=== PATIENT | female | born 1990 | race Caucasian/White ===

== ENCOUNTER 2018-07-08 15:13 | Outpatient (REF) | payer SELFPAY ==
[2018-07-09 10:10] LABS: HBs Antibody, Quant 314.7 mIU/mL; Hepatitis B Surface Ab Positive
[2018-07-10 10:59] LABS: TB Interpretation Negative (NEGAT)
== END 2018-07-08 15:33 ==
LOC: LBO 15:13
PROVIDERS: PCP Internal Medicine; Visit Provider Nurse Practitioner Family
DX: Z01.84 Encounter for antibody response examination (principal); Z02.1 Encounter for pre-employment examination
CPT/HCPCS: 36415; 86706; 86480

== ENCOUNTER 2024-06-27 02:48 | Outpatient (CLI) | payer OTHER, SELFPAY ==
--- OUTSIDE RECORDS SUMMARY | 2024-06-27 02:50 | XMS_ITS | Encounter Summary ---
Author Organization [facility] Address [address] [place] [address] Care Team Providers Care Design Release Engineer Name Role Phone Mayco Jesus MD Primary Care Provider Aliyah negro Encounter Details Date Type Department Care Team (Late st Contact Info) Description 08/31/2021 Lab Requisition [facility] Pathology & Laboratory Medicine - [address] [address] Outr Resulting Lab, Provider Social History Tobacco Use Types Packs/Day Years Used Date Smoking Tobacco: Never Assessed Sex and Gender Information Value Date Recorded Sex Assigned at Not on file Gender Identity Not on file Sexual Orientation Not on file documented as of this encounter Plan of Treatment Not on file documented as of this encounter Procedures Procedure Name Priority Date/Time Associated Diagnosis Comments ZZCOVID-19 TEST [facility] PCR Today 08/31/2021 8:57 EST COVID-19 TESTING Routine 08/31/2021 8:57 EST documented in this encounter Results * COVID-19 TEST [facility] PCR (08/31/2021 8:57 EST) Swab 08/31/2021 8:57 EST 08/31/2021 16:19 EST Provider Outr Resulting Lab MICROBIOLOGY - GENERAL ORDERABLES [facility] [address] [place] [address] * COVID-19 TESTING (08/31/2021 8:57 EST) COVID-19 rt-PCR Result Negative Negative 08/31/2021 19:14 EST [facility] Comment: This test has not been FDA cleared or approved. This test has been authorized by FDA under an EUA for use by authorized laboratories. This test has been authorized only for detection of nucleic acid from 2019-nCoV, not for any other viruses or pathogens. This test is only authorized for the duration of the declaration that circumstances exist justifying the authorization of emergency use of in vitro diagnostic tests for detection and/or diagnosis of 2019-nCoV under section 564(b)(1) of Act, 21 U.S.C ?? 360bbb-3(b) (1), unless the authorization is terminated or revoked sooner. Negative results do not preclude 2019-nCoV infection and should not be used as the sole basis for treatment or other patient management decisions. Negative results must be combined with clinical observations, patient history, and epidemiological information. Performed on the Brand[employer] Fusion instrument Performing Lab [place] [facility] Lab 08/31/2021 19:14 EST [facility] Swab 08/31/2021 8:57 EST 08/31/2021 16:19 EST Provider Outr Resulting Lab MICROBIOLOGY - GENERAL ORDERABLES [facility] [address] [place] [address] documented in this encounter Visit Diagnoses Not on filedocumented in this encounter Care Teams Design Release Engineer Relationship Specialty Start Date End Date Mayco Jesus MD PCP - General 01/17/10 documented as of this encounter
--- OUTSIDE RECORDS SUMMARY | 2024-06-27 02:50 | XMS_ITS | Encounter Summary ---
Author Organization [facility] Address [address] [place] [address] Care Team Providers Care Heavy Media Operator Name Role Phone Mayco Jesus MD Primary Care Provider Aliyah negro Encounter Details Date Type Department Care Team (Late st Contact Info) Description 02/11/2018 Results Only [facility] [phone] Caryn Meyre, [facility] [address] [place] [address] Social History Tobacco Use Types Packs/Day Years Used Date Smoking Tobacco: Never Assessed Sex and Gender Information Value Date Recorded Sex Assigned at Not on file Gender Identity Not on file Sexual Orientation Not on file documented as of this encounter Plan of Treatment Not on file documented as of this encounter Procedures Procedure Name Priority Date/Time Associated Diagnosis Comments PAP TEST- RESULT ONLY Routine 02/11/2018 0:00 EDT documented in this encounter Results * PAP TEST- RESULT ONLY (02/11/2018 0:00 EDT) Pathology Report: CYTOPATHOLOGY REPORT Reports generated via electronic interface contain original data; however they are lacking the format of the original report. Caution should be taken when reading/interpreti ng unformatted reports. Name: ? FANI RIOS ? Accession #: ? [id number] ? : ? 1990 (Age: 28) ??F ?Collect Date: ? 02/11/2018 ? Location: ? [facility] ? Receive Date: ? 02/11/2018 ? Provider: CARYN MEYER BUTTER PRODUCTION SUPERVISOR Copy to: ISH ROSA MD ? Final Report SPECIMEN ADEQUACY ? Satisfactory for Evaluation - transformation zone component present GENERAL CATEGORIZATION ? Negative for Intraepithelial Lesion or Malignancy ?? Last Menstrual Period: 01/30/18 Specimen/Source: ??Pap Test, Cervix, ThinPrep Imaging System with manual evaluation Document reviewed and electronically signed by: ? Pattie Zamora, CT(ASCP) ? Report ??Date: 02/19/2018 13:02 HPV with Pap Test ? Date Ordered: ? 02/19/2018 ? Status: ?? Signed Out ?Date Complete: ? 02/20/2018 ? By: ??System Interface ? Date Reported: ? 02/20/2018 ? Interpretation RESULT: Negative for HPV. No E6 or E7 mRNA is detected from HPV types 16,18,31,33,35, 39,45,51,52,56,58, 59,66, and 68 by executive creative director mediated amplification. Comments Document reviewed and electronically signed by: ? System Interface ? Report date: 02/20/2018 By the signature above, the attending physician certifies that he/she has personally conducted a gross and/or microscopic examination of the described specimens and rendered or confirmed the above diagnosis. End of Report [facility] 02/11/2018 02/11/2018 Caryn Meyer BUTTER PRODUCTION SUPERVISOR PATHOLOGY ORDERABLES [facility] [address] [place] [address] documented in this encounter Visit Diagnoses Not on filedocumented in this encounter Care Teams Heavy Media Operator Relationship Specialty Start Date End Date Mayco Jesus MD PCP - General 01/17/10 documented as of this encounter
--- OUTSIDE RECORDS SUMMARY | 2024-06-27 02:50 | XMS_ITS | Encounter Summary ---
Author Organization [facility] Address [address] [place] [address] Care Team Providers Care Flight Attendant Ramp Name Role Phone Unavailable Primary Care Provider Unavailabl e Encounter Details Date Type Department Care Team (Late st Contact Info) Description 01/12/2010 Results Only [facility] Laboratory Services - [facility] ([facility]) [address] [place] [address] [id number] Kamran Gutierrez MD [address] [place] [address] Social History Tobacco Use Types Packs/Day Years Used Date Smoking Tobacco: Never Assessed Sex and Gender Information Value Date Recorded Sex Assigned at Not on file Gender Identity Not on file Sexual Orientation Not on file documented as of this encounter Plan of Treatment Not on file documented as of this encounter Procedures Procedure Name Priority Date/Time Associated Diagnosis Comments SURGICAL PATHOLOGY Routine 01/12/2010 0:00 EDT documented in this encounter Results * SURGICAL PATHOLOGY (01/12/2010 0:00 EDT) Pathology Report: SURGICAL PATHOLOGY REPORT ? Reports generated via electronic interface contain original data; ? however they are lacking the format of the original report. ? Caution should be taken when reading/interpretin g unformatted reports. ? Name: ? FANI RIOS ? Accession #: ? [id number] ? : ? 1990 (Age: 20) ??F ? Collect Date: ? 01/12/2010 ? Location: ? [facility] ? Receive Date: ? 01/13/2010 ? Provider: KAMRAN GUTIERREZ MD ? Copy to: ISH ROSA MD ? AMANDA M KARO MD ? Final Pathologic Diagnosis: ? Appendix, appendectomy: ? - Acute suppurative appendicitis and periappendicitis with evidence of ? perforation. ? Document reviewed and electronically signed by: ? Anastasiya Song MD ? Report ??Date: 01/17/2010 16:32 ? By the signature above, the attending physician certifies that he/she has ? personally conducted a gross and/or microscopic examination of the described ? specimens and rendered or confirmed the above diagnosis. ? Specimen(s) Received: ? Appendix ? Clinical History: ? Appendicitis ? Gross Description: ? Received in formalin labelled Fani Rios and appendix is a ? vermiform appendix received in two pieces, with the distal end measuring 4.0 cm in length by 1.0 cm in diameter and the proximal portion measuring 4.5 cm in ? length by 0.7 cm in diameter. ??The resection margin is received stapled closed ?? and is black inked. ??Located 0.5 cm from the distal end of the appendix is a 0.7 x 0.5 cm large, full wall thickness defect, with the edges of the wall in this ?? region having a friable, lucero-white cut surface. ??The serosa is diffusely dusky, ramirez and ramirez-brown, and rough, with a small amount of attached mesoappendix. ??The lumen is 0.6 cm in diameter at the distal end in the region of the perforation; however, the remaining lumen is of normal caliber and there are no fecaliths. ?? The appendiceal wall is ramirez to ramirez-brown and firm and ranges in thickness from ?? 0.1 cm distally in the region of the perforation to 0.3 cm. ??A section adjacent to the black inked stapled surgical margin, one-half of the longitudinally ? bisected distal tip of the appendix, and a cross section through the distal ? perforation (blue ink placed on serosa in this region) as well as cross sections of the middle and proximal appendix are all submitted in one cassette. ??(Luis Alberto. ? Melania)/gertrude ? End of Report ? [facility] 01/12/2010 01/13/2010 16: 38 EDT Kamran Gutierrez MD PATHOLOGY ORDERABLE [facility] [address] [place] [address] documented in this encounter Visit Diagnoses Not on filedocumented in this encounter
--- OUTSIDE RECORDS SUMMARY | 2024-06-27 02:50 | XMS_ITS | Clinical Summary ---
Author Organization [facility] Address [address] [place] [address] Care Team Providers Care Residential Team Leader Name Role Phone Mayco Jesus MD Primary Care Provider Aliyah negro Social History Tobacco Use Types Packs/Day Years Used Date Smoking Tobacco: Never Assessed Sex and Gender Information Value Date Recorded Sex Assigned at Not on file Gender Identity Not on file Sexual Orientation Not on file Plan of Treatment Health Maintenance Due Date Last Done Comments Hepatitis C Screen 1990 Hepatitis B Vaccine (1 of 3 - 19+ 3-dose series) 01/02 COVID-19 Vaccine (2022-24 season) 2023 Care Teams Residential Team Leader Relationship Specialty Start Date End Date Mayco Jesus MD PCP - General 01/17/10
--- OUTSIDE RECORDS SUMMARY | 2024-06-27 02:50 | XMS_ITS | Referral Summary ---
Author Organization [facility] Address [address] [place] [address] Care Team Providers Care Edge Stitcher Name Role Phone Mayco Jesus MD Primary Care Provider Aliyah negro Social History Tobacco Use Types Packs/Day Years Used Date Smoking Tobacco: Never Assessed Sex and Gender Information Value Date Recorded Sex Assigned at Not on file Gender Identity Not on file Sexual Orientation Not on file Plan of Treatment Not on file Care Teams Edge Stitcher Relationship Specialty Start Date End Date Mayco Jesus MD PCP - General 01/17/10
--- OUTSIDE RECORDS SUMMARY | 2024-06-27 02:50 | XMS_ITS | Encounter Summary ---
Author Organization [facility] Address [address] [place] [address] Care Team Providers Care Observer Gravity Prospecting Name Role Phone Mayco Jesus MD Primary Care Provider Aliyah negro Encounter Details Date Type Department Care Team (Late st Contact Info) Description 09/01/2013 Results Only [facility] Laboratory Services - [facility] ([facility]) [address] [place] [id number] Thu Ford, SPINNING MACHINE TENDER Social History Tobacco Use Types Packs/Day Years [...] Diagnosis Comments PAP TEST- RESULT ONLY Routine 09/01/2013 0:00 EST documented in this encounter Results * PAP TEST- RESULT ONLY (09/01/2013 0:00 EST) Pathology Report: CYTOPATHOLOGY REPORT Reports generated via electronic interface contain original data; however they are lacking the format of the original report. Caution should be taken when reading/interpreti ng unformatted reports. Name: ? FANI RIOS ? Accession #: ? [id number] : ? 1990 (Age: 23) ??F ?Collect Date: ? 09/01/2013 Location: ? [facility] ? Receive Date: ? 09/03/2013 Provider: ?THU FORD SPINNING MACHINE TENDER Copy to: ?ISH ROSA MD ? Specimen/Source: ?Pap Test, Cervix/Endocervix, ThinPrep Imaging System with manual evaluation Last Menstrual Period: ? 08/12/2013 Other: ? Additional clinical information: Last pap 03/14/2010 WNL ? SPECIMEN ADEQUACY ? Satisfactory for Evaluation - transformation zone component present GENERAL CATEGORIZATION ? Negative for Intraepithelial Lesion or Malignancy ? Document reviewed and electronically signed by: ? LANEY Fuller(ASCP) ? Report Date: ??09/04/2013 13:16 End of Report [facility] 09/01/2013 09/03/2013 Thu Ford NP PATHOLOGY ORDERABLES [facility] [address] [place] [address] documented in this encounter Visit Diagnoses Not on filedocumented in this encounter Care Teams Observer Gravity Prospecting Relationship Specialty Start Date End Date Mayco Jesus MD PCP - General 01/17/10 documented as of this encounter
--- OUTSIDE RECORDS SUMMARY | 2024-06-27 02:50 | XMS_ITS | Encounter Summary ---
Author Organization [facility] Address [address] [place] [address] Care Team Providers Care Individual Pension Adviser Name Role Phone Mayco Jesus MD Primary Care Provider Aliyah negro Encounter Details Date Type Department Care Team (Late st Contact Info) Description 03/14/2010 Results Only [facility] Laboratory Services - [facility] ([facility]) [address] [place] [address] Thu Ford, WHEELCHAIR DRIVER Social History Tobacco Use Types Packs/Day Years Used Date Smoking Tobacco: Never Assessed Sex and Gender Information Value Date Recorded Sex Assigned at Not on file Gender Identity Not on file Sexual Orientation Not on file documented as of this encounter Plan of Treatment Not on file documented as of this encounter Procedures Procedure Name Priority Date/Time Associated Diagnosis Comments CYTOPATHOLOGY Routine 03/14/2010 0:00 EDT documented in this encounter Results * CYTOPATHOLOGY (03/14/2010 0:00 EDT) Pathology Report: CYTOPATHOLOGY REPORT ? Reports generated via electronic interface contain original data; ? however they are lacking the format of the original report. ? Caution should be taken when reading/interpreti ng unformatted reports. ? Name: ? FANI RIOS ? Accession #: ? [id number] ? : ? 1990 (Age: 20) ??F ?Collect Date: ? 03/14/2010 ? Location: ? [facility] ? Receive Date: ? 03/15/2010 ? Provider: ?THU M AMY WHEELCHAIR DRIVER ? Copy to: ? Specimen/Source: ?Pap Test, Cervix/Endocervix, ThinPrep Imaging System ? with manual evaluation ? Last Menstrual Period: ? 6/4/10 ? Other: ? Additional clinical information: 1st pap smear, blind pap ? SPECIMEN ADEQUACY ? Satisfactory for Evaluation ? - transformation zone component present ? GENERAL CATEGORIZATION ? Negative for Intraepithelial Lesion or Malignancy ? Document reviewed and electronically signed by: ? Rand Hawk, CT(ASCP) ? Report Date: ??03/17/2010 16:21 ? End of Report ? [facility] 03/14/2010 03/15/2010 Thu Ford WHEELCHAIR DRIVER PATHOLOGY ORDERABLES Performing Organization Address City/State/[facility] Co de Phone Number [facility] [address] [place] [address] documented in this encounter Visit Diagnoses Not on filedocumented in this encounter Care Teams Individual Pension Adviser Relationship Specialty Start Date End Date Mayco Jesus MD PCP - General 01/17/10 documented as of this encounter
[2024-06-27 08:20] LABS: Abs Immature Grans 0.02 10^3/uL (0.0-0.06); Absolute Basophil Count 0.07 10^3/uL (0.0-0.2); Absolute Lymphocyte Count 1.55 10^3/uL (1.2-3.4); Absolute Monocyte Count 0.47 10^3/uL (0.1-0.8); Absolute Neutrophil Count 3.95 10^3/uL (1.2-6.7); Basophils % 1.1 %; Eosinophils % 3.2 %; HCT 41.9 % (36.0-46.0); HGB 14.1 g/dL (11.2-15.7); Immature Grans % 0.3 %; Lymphocytes % 24.8 %; MCH 29.7 pg (27.0-33.0); MCHC 33.7 % (32.0-36.0); MCV 88 fL (80-95); MPV 10.4 fL (8.0-11.0); Monocytes % 7.5 %; Neutrophils % 63.1 %; Platelet Count 226 10^3/uL (130-400); RBC 4.75 10^6/uL (3.93-5.22); RDW 11.5 % (11.7-14.6); WBC 6.26 10^3/uL (4.4-10.8)
[2024-06-27 08:54] LABS: ALT 21 U/L (14-59); AST 21 U/L (15-37); Albumin 4.2 g/dL (3.4-5.0); Alkaline Phosphatase 70 U/L (46-116); Anion Gap 4.5 mmol/L (3-11); BUN 9 mg/dL (7-18); Bilirubin, Total 1.17 mg/dL (0.2-1.0); CO2 30.5 mmol/L (21.0-32.0); CREATININE 0.9 mg/dL (0.55-1.02); Calcium 9.2 mg/dL (8.5-10.1); Chloride 102 mmol/L (98-107); Cholesterol 141 mg/dL (<200); Estimated GFR 84.97 (mL/min/1.73m2); Glucose 84 mg/dL (74-106); HDL Cholesterol 78 mg/dL (40-60); Potassium 3.9 mmol/L (3.5-5.1); Sodium 137 mmol/L (136-145); Total Protein 7.4 g/dL (6.4-8.2)
[2024-06-27 08:55] LABS: Triglyceride <25 mg/dL (<150)
[2024-06-27 10:28] LABS: LDL CHOLESTEROL 54 mg/dL (<100)
== END 2024-06-27 02:49 | disposition home or self-care (01) ==
LOC: LBO 02:49
PROVIDERS: Absent Provider Nurse Practitioner; PCP Nurse Practitioner; Referring Provider Nurse Practitioner; Visit Provider Nurse Practitioner
DX: Z13.220 Encounter for screening for lipoid disorders (principal); R11.0 Nausea; R10.2 Pelvic and perineal pain
CPT/HCPCS: 36415; 80053; 80061; 83721; 85025

== ENCOUNTER 2025-02-23 10:05 | Outpatient (REF) | payer OTHER, SELFPAY ==
--- NOTE | 2025-02-23 09:55 | PAPFT_PTH ---
PATIENT: Josephine Rios LOC: [facility]#:[id number] AGE/SX: 35/F ROOM: RE02/23/[address]: Zonia Rojas NP : 1990 BED: DIS: 02/23/2025 SPEC #: [id number] RECD: 02/23/25 13:13 STATUS: JYOTSNA REQ #: [id number] MUNIRA: 02/23/25 09:[address]: Zonia Rojas NP DEPT: [facility] Cytology RECD BY: Sapna Wagoner ENTERED: 02/23/25 13:14 SP TYPE: PAPFT OTHR DR: Sandra Park APRN Tissues: 1 - CX/ENDOCX FOR PAP SMEARS Procedures: PAP THIN PREP/[facility] Screening HPV DNA PROBE Comments: [id number] (HPV 16 & 18/45)
== END 2025-02-23 10:06 | disposition home or self-care (01) ==
LOC: LBN 10:05
PROVIDERS: PCP Nurse Practitioner; Visit Provider Nurse Practitioner Women's Health
DX: Z12.4 Encounter for screening for malignant neoplasm of cervix (principal); Z11.51 Encounter for screening for human papillomavirus (HPV)
CPT/HCPCS: 88142; 87624

== ENCOUNTER 2025-07-14 00:15 | Outpatient (CLI) | payer OTHER, SELFPAY ==
--- NOTE | 2025-07-14 07:15 | DI.CT_ITS ---
Exam(s) CT ABDOMEN PELVIS W EXAM: CT ABDOMEN PELVIS W CLINICAL HISTORY: chronic RLQ pain,R10.31 TECHNIQUE: Imaging Protocol: Axial computed tomography images with coronal and sagittal reformatted images were created and reviewed. CONTRAST MATERIAL: Intravenous: Omnipaque 350 Contrast volume:75 mL Oral: Yes COMPARISON: CT ABD PELVIS WITH CONTRAST from 01/12/2010 FINDINGS: ABDOMEN: Lung Bases: No acute abnormality. Liver: Normal density. No measurable mass. Portal, Superior Mesenteric, and Splenic Veins: Unremarkable. Gallbladder and Biliary Tract: No radiodense calculus or dilation. Pancreas: Normal density, no abnormal calcifications or inflammatory process. Spleen: Normal. Adrenals: No masses seen. Kidneys: Normal size, contour and axis. No radiodense stones or obstructive uropathy. No masses seen. Abdominal Aorta: Abdominal portion non-dilated. Bowel: There is no evidence of bowel obstruction. There is mild thickening of the wall of the transverse colon, portions of the descending colon and sigmoid colon. This may in part be due to underdistention but infectious or inflammatory process should be considered. There are question of mild infla mmatory changes seen in the soft tissues around in the transverse colon. There is no evidence of appendicitis. Peritoneal Cavity: No ascites, collection or mesenteric inflammatory response. No free air. Lymph Nodes: Within normal limits. Bones: Within normal limits for the patient's age. Soft Tissues: Unremarkable. PELVIS: Bladder: Symmetric distention, no gross wall thickening. Reproductive Organs: There is a 2 cm corpus luteal cyst on the right ovary. Lymph Nodes: Within normal limits. Bones: Within normal limits for the patient's age. IMPRESSION: 1. Mild wall thickening seen in the transverse colon, portions of the descending colon and sigmoid colon. This may be in part due to underdistention but a infectious/inflammatory process such as Crohn's/UC should be considered. Please correlate clinically. 2. 2 cm right ovarian corpus luteal cyst. RADIATION DOSE DELIVERED: 483.25mGy.cm Total DLP DATA REPOSITORY: All CT scans at this facility are submitted to the National Radiology Data Registry (NRDR) Dose Index Registry (DIR) with the [employer] (ACR). RADIATION OPTIMIZATION: All CT scans at this facility use at least one of these dose optimization techniques: automated exposure control; mA and/or kV adjustment per patient size (includes targeted exams where dose is matched to clinical indication); or iterative reconstruction.
[2025-07-14] MEDS: Barium Sulfate 2% W/V-Berry Smoothie 450 ML BTL PO (07:43)
[2025-07-14] MEDS: Barium Sulfate 2% W/V-Creamy Vanilla Smoothie 450 ML BTL PO (07:43)
[2025-07-14] MEDS: Normal Saline - Diluent 50 ML VIAL IJ (09:50)
[2025-07-14] MEDS: Normal Saline Flush 10 ML SYR IVP (09:51)
[2025-07-14] MEDS: Omnipaque 350 MG/ML 500 ML BTL-Imaging package IJ (09:51)
== END 2025-07-14 00:35 ==
PROVIDERS: PCP Nurse Practitioner; Visit Provider Family Medicine
DX: R10.31 Right lower quadrant pain (principal); G89.29 Other chronic pain
CPT/HCPCS: 74177

== ENCOUNTER 2025-08-14 06:07 | Day surgery (SDC) | payer OTHER, SELFPAY ==
--- NOTE | 2025-08-13 14:16 | PDOC.DSDIS_ITS ---
Date of service: 08/14/25 Discharge Plan Disposition Patient Disposition: Home Condition: Good Discharge Details Reason For Visit: Diagnostic colonoscopy Attending Provider: Mack Frank Primary Care Provider: Ibrahima Marmolejo Home Meds and New Rx's Prescriptions: Continued acetaminophen 325 mg tablet 325 mg PO ONCE PRN ondansetron HCl 4 mg tablet 4 mg PO Q8H PRN (Reason: nausea and vomiting) Qty: 7 0RF rizatriptan 5 mg tablet,disintegrating See Rx Instructions PO .COMPLEX Qty: 10 6RF Rx Instructions: take 1 tablet at onset of headache; if no relief, may repeat 1 tablet after at least 2 hrs PO Discontinued polyethylene glycol 3350 [Miralax] 17 gram/dose powder 17 g PO DAILY PRN Discharge Instructions Additional Instructions: Josephine, I hope you have a quick and uneventful recovery as you transition home after the procedure. Things went very smoothly. Your prep was excellent, and I could see everything fine. I did see some signs of inflammation in your rectum, as well as a few patchy spots in your colon. There is also a little bit of thickened tissue in the last part of your small intestine, known as the terminal ileum. Putting all of this together, I suspect this may represent mild Crohn's colitis. I did several biopsies of this today, and I will send this off to the pathologist to see if that helps support the diagnosis. The results will take a week or 2 to get back, but once I have that information, I will call you and let you know if we need to do anything different. I also found a small bit of polypoid tissue, that I did removed today. This is certainly nothing to worry about, nor would it explain any of the symptoms that you experienced. If it does test and turn up technician to be an adenomatous polyp, then that might influence the timing of future colonoscopies. For now, there is nothing else that you need to do. Certainly if you have any questions at all, do not hesitate to grab me. Alternatively, I will call you as soon as I have the results. 1. If tolerated, consume a soft, low fiber diet for 1-2 days. 2[address] Do not drive, drink alcohol, operate machinery, make critical decisions, or do activities that require coordination or balance for 24 hours. 3. Because air was put into your colon during the procedure, expelling air from your rectum (passing gas or farting) is normal. 4. You may not have a bowel movement for 1-3 days because of the colonoscopy prep. This is normal. 5. Go directly to the emergency room if you notice any of the following: Develop chills (warm to touch), or if you have a thermometer and your temperature is above 101 Difficulty breathing or difficultly swallowing Persistent vomiting Severe abdominal pain, other than gas cramps Severe chest pain Black, tarry stools Any bleeding ? exceeding one tablespoon 6. Call your physician if the site where your intravenous was started becomes red, swollen, painful, and warm to touch. 7. Your physician has reviewed your pre-procedure medications. Please continue t o take those medications as previously ordered. You will be given specific information/education regarding any changes to your medications before leaving. Stand Alone Forms: Portal Information Activity:: Activity as Tolerated Diet:: As Tolerated Discharge Orders Discharge Orders: Discharge Order (Routine); Ordered 08/13/25 Ordered By: Mack Frank DS: Diagnosis Discharge Diagnosis (1) Colitis: Status: Acute Asessment and Plan: Follow-up on the polypectomy and biopsy results
--- NOTE | 2025-08-13 14:43 | COLE_ITS ---
Date of service: 08/14/25 Time of Service: 08:02 Colonoscopy Report Date of procedure: 08/14/25 Pre-op diagnosis general: Colitis Post-op diagnosis procedure note: other (Possible Crohn's colitis) Procedure: Colonoscopy with biopsies and polypectomy Surgeon: Mack Frank Anesthesia Type: General:No Airway Estimated blood loss (mL): 5 Pathology: other (Rectal biopsies, biopsies of terminal ileum, 0.25 cm flat polyp at 70 cm) Complications: None Disposition: same day Indications: Josephine is a 35-year-old woman with colitis of uncertain etiology Prep: Miralax/Dulcolax Procedure Start Time: 07:32 Procedure End Time: 07:53 Retraction Time: 9 Findings: Mild proctitis, mild cobblestoning of the terminal ileum, 0.5 cm flat polyp at 70 cm Procedure Description: After the induction of anesthesia, and with the patient in left lateral decubitus position, I began by performing an external anorectal exam.? Perineum and skin were normal, as was the anal verge.? There was no evidence of external hemorrhoids.? Next, I performed a digital rectal exam.? I did not appreciate any abnormal findings.? Next, I advanced a colonoscope into the rectal vault.? I performed retroflexion.? This appeared normal. There was some mild inflammation and some ulcerative changes of the lower portion of the rectum. Cold forceps biopsies were performed of this. Clinically, some of the features were consistent with proctitis, or perhaps Crohn's disease.? Using irrigation, I then advanced the colonoscope beyond the rectal folds and into the sigmoid colon before advancing towards the cecum.? The quality of the prep was excellent.? The scope was noted to be in the cecum by identification of the ileocecal valve and appendiceal orifice.? I cannulated the terminal ileum for several centimeters. There was a little bit of cobblestoning of the mucosa here. The tissue was not particularly friable. Narrowband imaging was used to assist with the evaluation. Cold forceps biopsies were performed of the terminal ileum in an effort to confirm or refute the diagnosis of Crohn's disease. I then began withdrawing the colonoscope using repeated irrigation as necessary for full evaluation of the colonic mucosa. Around 70 cm from the anal verge was a 0.25 cm bit of polypoid tissue. This was removed with cold forceps. There was minimal bleeding. There was mild enhancement of the submucosal vasculature in a patchy distribution along the length of the colon. Once the scope was withdrawn to the level of the rectum, great care was taken to examine portions of the rectal folds.? Finally, the scope was withdrawn and the patient was brought to the same-day surgery recovery unit as the anesthetic wore off. ?The findings and instructions were shared with the patient prior to discharge. [place] Bowel Prep [place] Bowel Prep Right Colon: 3 Left Colon: 3 Transverse Colon: 3 Total Score: 9
[2025-08-14 06:24] VITALS: BP 115/76; PULSE 83; RESP 17; TEMP 36.8; O2SAT 98
[2025-08-14] MEDS: Lactated Ringers 1,000 ML 80 ML IV (06:47)
--- NOTE | 2025-08-14 07:07 | W.ANESPRE ---
General Info Date of Service Date Performed: 08/14/25 Height: 5 ft 5 in Weight: 71.9 kg Body Mass Index (BMI): 26.4 Surgical Procedure: Operation Date: 08/14/25 07:35 Proposed Procedure Side Surgeon casimiro Frank MD Meds Allergies and Home Medications Allergies Allergy/AdvReac Type Severity Reaction Status Date / Time phenytoin sodium (From Allergy Severe did Verified 08/14/25 06:28 Dilantin) something to her teeth Home Medication ?Medication ?Instructions ?Recorded acetaminophen 325 mg tablet 325 mg PO ONCE PRN 03/29/22 ondansetron HCl 4 mg tablet 4 mg PO Q8H PRN nausea and 06/16/24 vomiting #7 tabs rizatriptan 5 mg disintegrating See Rx Instructions PO .COMPLEX 08/06/25 tablet #10 tabs Current Visit Medications: Current Medications Generic Name Dose Route Start Last Admin Trade Name Freq PRN Reason Stop Dose Admin Ringer's Solution 1,000 mls @ 80 mls/hr 08/14/25 06:00 08/14/25 06:47 IV 08/14/25 23:59 80 mls/hr INFUSION JOSE ANTONIO Administration IV Miscellaneous Supplies 1 each 08/14/25 06:00 Iv Access IV 08/14/25 23:59 DIRECTED JOSE ANTONIO Sodium Chloride 0 ml 08/14/25 06:00 Normal Saline Flush 10 Ml Syr IV 08/14/25 23:59 PRN PRN Sodium Chloride 0 ml 08/14/25 06:00 Normal Saline 10 Ml Vial IJ 08/14/25 23:59 DIRECTED PRN Sterile Water 0 ml 08/14/25 06:00 Water,Injection,Sterile 10 Ml Vial IJ 08/14/25 23:59 DIRECTED PRN PFSH Active Problems Active Problems: Problem Status Onset Code Colitis Acute K52.9 Heat rash Acute L74.0 Abdominal pain, chronic, right lower quadrant Acute R10.31, G89.29 Migraine Chronic G43.909 Vaginismus Acute 02/11/18 N94.2 Medical History Medical History Seizure in response to acute event Brain surgery age 7yrs with removal of benign tumor which 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 Pt. discharge from neuro care. Has not had any seizures since then Appendectomy (01/12/10) Ruptured appendix 2010 Tobacco Smoking/Tobacco Use Status: Never Passive smoking exposure: No Alcohol Alcohol Intake: current Alcohol intake frequency: a few times a week Substance Use Substance use: Never Substance use type: does not use Prental History History 0 Para Hx # Term Pregnancies Multiple births Hx # Pregnancies Ectopic pregnancies AB induced Hx Number of Living Children AB spontaneous Vital Signs and Lab Results Vital Signs Most Recent Vital Signs in EMR: Most Recent Vital Signs Temp Pulse Resp BP Pulse Ox 36.8 C 83 17 115/76 98 08/14/25 06:24 08/14/25 06:24 08/14/25 06:24 08/14/25 06:24 08/14/25 06:24 Point of Care Results Point of Care Results: POC- Test(urine) Negative 08/14/25 06:29 Anesthesia Assessment and Plan Anesthesia History Personal History: No History of Anesthesia Complications Family History: Family History Unknown and Other Exercise Tolerance Exercise Tolerance: Metabolic Equivalents>4 Pertinent Negatives Pertinent Negatives: No Symptoms of GERD Cardiac & Pulmonary Exam Cardiac Exam: Normal S1/S2 Heart Sounds Pulmonary Exam: Clear Bilateral Breath Sounds Implantable Cardiac Device Does patient have a Pacemaker or an ICD?: No Airway Exam Known Difficult Airway: No Mallampati Class: 2 Mouth Opening: Normal (> 3cm) Thyromental Distance: Greater than 3 cm Neck Range of Motion: Full ROM Neck Circumference: Normal Teeth Condition: Normal Dentition ASA Classification ASA Score: ASA 2 Emergency Case?: No NPO Status NPO Status: NPO Clears >2 hours, Solids >8 hours Status Status: Negative HCG Anesthesia Plan Resuscitation Status: Full Code Anesthesia Technique: General Anesthesia Airway Planned: Natural Airway Monitors Used: Standard Monitors
[2025-08-14 07:09] VITALS: BMI 26.4
--- NOTE | 2025-08-14 07:34 | BOWEL_PTH ---
PATIENT: Josephine Rios LOC: [facility] U#:[id number] AGE/SX: 35/F ROOM: RE08/14/[address]: Mack Frank MD : [id number] BED: DIS: 08/14/2025 SPEC #: [id number] RECD: 08/14/25 12:37 STATUS: JYOTSNA REElaina #: [id number] MUNIRA: 08/14/25 07:[address]: Mack Frank DEPT: Surgical Specimen RECD BY: Sapna Wagoner ENTERED: 08/14/25 12:37 SP TYPE: Bowel OTHR DR: Ibrahima Marmolejo Tissues: 1 - BIOPSY BOWEL 2 - BIOPSY BOWEL 3 - BIOPSY BOWEL Procedures: GROSS AND MICRO LEVEL 4 IMMUNOPEROXIDASE STAIN Comments: [id number]
[2025-08-14 07:56] VITALS: BP 85/47; PULSE 87; RESP 16; TEMP 37; O2SAT 99
--- NOTE | 2025-08-14 08:04 | W.ANESPOSTOP ---
Postoperative Evaluation Date, Time and Location Date Performed: 08/14/25 Time Performed: 08:05 Patient Location: Day Surgery Unit Vital Signs Most Recent Imported Vital Signs: Most Recent Vital Signs Temp Pulse Resp BP Pulse Ox 37 C 87 16 85/47 L 99 08/14/25 07:56 08/14/25 07:56 08/14/25 07:56 08/14/25 07:56 08/14/25 07:56 Pain Score Most Recent Pain Score: Most Recent Pain Score Pain Level 0 08/14/25 06:24 Assessment Mental Status: Awake (Alert & Oriented to Patient Baseline) Airway and Respiratory Function: Patent airway with normal (patient baseline) respiratory exam Cardiovascular Function: Hemodynamically Stable Hydration Status: Adequately Hydrated Nausea & Vomiting: No Nausea or Vomiting Pain: Pt. Denies Any Pain Peripheral Nerve Block: Patient did not receive a nerve block
[2025-08-14 08:27] VITALS: BP 97/67; PULSE 71; RESP 18; TEMP 36.2; O2SAT 99
== END 2025-08-14 08:49 | disposition home or self-care (01) ==
LOC: SUR 06:09
PROVIDERS: Visit Provider Surgery
PROC: 0DJD8ZZ Inspection of Lower Intestinal Tract, Via Natural or Artificial Opening Endoscopic (ICD-10-PCS; CPT 45378; principal; 2025-08-14 07:30)
DX: K52.9 Noninfective gastroenteritis and colitis, unspecified (principal); K63.5 Polyp of colon; K62.89 Other specified diseases of anus and rectum; K63.89 Other specified diseases of intestine
CPT/HCPCS: 45380; 81025; 88305; 88361; J2003; J2704